=== PATIENT | female | born 1995 | race Caucasian/White ===

== ENCOUNTER 2018-11-21 16:36 | Emergency (ER) | payer OTHER ==
[2018-11-21] MEDS ORDERED: NS 1,000 ML IV ONE ×2 (16:54→17:13)
[2018-11-21] MEDS ORDERED: ONDANSETRON 4 MG/2 ML VIAL IVP ONE (17:13)
[2018-11-21] MEDS ORDERED: KETOROLAC 30 MG/1 ML SDV IVP ONE (17:13)
--- NOTE | 2018-11-21 17:20 | EDPHY ---
H & P Stated Complaint: abdominal pain Time Seen by Provider: 11/21/18 17:06 - Personal History LMP (Females 10-55): IUD In Place - Medical/Surgical History Hx Asthma: No Hx Chronic Respiratory Disease: No Hx Diabetes: No Hx Cardiac Disease: No Hx Renal Disease: No Hx Cirrhosis: No Hx Alcoholism: No Hx HIV/AIDS: No Hx Splenectomy or Spleen Trauma: No Other PMH: none reported - Social History Smoking Status: Never smoked Constitutional: Initial Vital Signs Temperature (C) 37.2 C 11/21/18 16:38 Heart Rate 61 11/21/18 16:38 Respiratory Rate 18 11/21/18 16:38 Blood Pressure 105/68 11/21/18 16:38 O2 Sat (%) 96 11/21/18 16:38 O2 Delivery Mode Room Air Allergies/Adverse Reactions: No Known Allergies Allergy (Unverified 11/21/18 16:38) Home Medications: Medication Instructions Recorded Ibuprofen [Motrin] 800 mg PO Q8 #20 tab 11/21/18 Ondansetron Odt [Zofran Odt 4 mg 4 mg PO Q4 PRN #10 tab 11/21/18 (RX)] Medical Decision Making - Diagnostics Imaging Results: Imaging Impressions Abdomen Ultrasound 11/21/18 17:13 Impression: Nonvisualization of the appendix with no secondary evidence of appendicitis. Findings discussed with Bonifacio Johnson MD 11/21/2018 at 18:24. Pelvic/Renal Ultrasound 11/21/18 17:13 Impression: Top of the IUD 7 mm from the superior margin of the uterine cavity, which can be associated with pain and bleeding, as well as a higher risk of expulsion or displacement. Findings discussed with Bonifacio Johnson MD 11/21/2018 at 18:24. Abdomen CT 11/21/18 18:25 Impression: 1. No CT findings for appendicitis. Moderate constipation. 2. Probable mild mesenteric adenitis. 3. Questionable mild diverticulitis mid descending colon. Results called and discussed with the syrup mixer assistant for Bonifacio Johnson MD, on 2018, 19:26. Imaging: Discussed imaging studies w/ call center professional Radiologist, I viewed and interpreted images myself ED Course/Re-evaluation: CHIEF COMPLAINT: Right lower quadrant abdominal pain HISTORY OF PRESENT ILLNESS: 23-year-old healthy female who 2 days ago developed abdominal pain. She said it was a bit better yesterday then got a lot worse today. She somewhat nauseated. She feels the pain some times on the left in by her umbilicus but most concentrated in the right lower quadrant. She was over at the [facility] and they sent her here for further evaluation. She denies any prior abdominal surgeries. She denies any fevers or chills. She is somewhat anorexic. REVIEW OF SYSTEMS: A comprehensive 10 system review of systems is otherwise negative aside from elements mentioned in the history of present illness and medical decision making. PHYSICAL EXAM: HR, BP, O2 Sat, RR. Temp noted General Appearance: Alert, well hydrated, appropriate, and non-toxic appearing. Head: Atraumatic without scalp tenderness or obvious injury Eyes: Pupils equal, round, reactive to light and accommodation, EOMI, no trauma , no injection. Ears: Clear bilaterally, no perforation, normal landmarks Nose: Atraumatic, no rhinorrhea, clear. Throat: There is no erythema or exudates, no lesions, normal tonsils, mucus membranes moist. Neck: Supple, 2+ carotid upstroke, nontender, no lymphadenopathy. Respiratory: No retractions, no distress, no wheezes, and no accessory muscle use. Lungs are clear to auscultation bilaterally. Cardiovascular: Regular rate and rhythm, no murmurs, rubs, or gallops. Bilateral carotid, radial, dorsalis pedis, and posterior tibial pulses intact. Good capillary refill all extremities. Gastrointestinal: Abdomen is soft but tender in the right lower quadrant, non- distended, no masses, no rebound, no guarding, no peritoneal signs. Musculoskeletal: Normal active ROM of all extremities, atraumatic. Neurological: Alert, appropriate, and interactive. The patient has normal DTRs and non-focal cranial nerves, motor, sensory, and cerebellar exam. Skin: No rashes, good turgor, no nodules on palpation. Past medical history: Denies Past surgical history: Denies Family history: Denies Social history: Single, employed, does not abuse tobacco drugs or alcohol DIAGNOSTICS/PROCEDURES/CRITICAL CARE TIME: Abdominal and pelvic US: Appendix not visualized. Low IUD. Abdominopelvic CT: 1. No CT findings for appendicitis. Moderate constipation. 2. Probable mild mesenteric adenitis. 3. Questionable mild diverticulitis mid descending colon. DIFFERENTIAL DIAGNOSIS: The differential diagnosis for the patient's abdominal pain included but was not limited to gastroenteritis, ovarian cyst, pelvic inflammatory disease, ovarian torsion, urinary tract infection, ectopic , cholecystitis, and appendicitis. MEDICAL DECISION MAKING: This patient is in no distress. I gave her some ketorolac and Zofran but she is not having much pain at this time. Pain is localized in the right lower quadrant on my examination but she does not have peritoneal signs. Laboratory studies and ultrasound are pending. I did tell her if we can't elucidate the problem with ultrasound we may consider CT scan. She has an IUD. 1827: I spoke with Dr. Segura, radiologist who reports that the US reveals a low IUD. The appendix is not visualized. Abdominopelvic CT ordered. 1925: I spoke with the radiologist who reports that the patient has mesenteric adenitis and gastroenteritis. 1939: Reassessed patient and discussed laboratory and imaging findings. I have advised her to follow up with a bowling alley refinisher. I have prescribed her Zofran and Motrin for her symptoms. Return precautions provided; patient is comfortable with this plan. - Data Points Laboratory Results: Laboratory Results 11/21/18 17:08 11/21/18 17:08 11/21/18 11/21/18 11/21/18 17:08 17:08 17:08 WBC 9.05 10^3/uL 10^3/uL (3.80-9.50) RBC 4.61 10^6/uL 10^6/uL (4.18-5.33) Hgb 14.2 g/dL g/dL (12.6-16.3) Hct 41.6 % % (38.0-47.0) MCV 90.2 fL fL (81.5-99.8) MCH 30.8 pg pg (27.9-34.1) MCHC 34.1 g/dL g/dL (32.4-36.7) RDW 11.9 % % (11.5-15.2) Plt Count 234 10^3/uL 10^3/uL (150-400) MPV 9.8 fL fL (8.7-11.7) Neut % (Auto) 63.0 % % (39.3-74.2) Lymph % (Auto) 26.4 % % (15.0-45.0) Mcdonald % (Auto) 8.5 % % (4.5-13.0) Eos % (Auto) 1.2 % % (0.6-7.6) Baso % (Auto) 0.6 % % (0.3-1.7) Nucleat RBC Rel Count 0.0 % % (0.0-0.2) Absolute Neuts (auto) 5.70 10^3/uL 10^3/uL (1.70-6.50) Absolute Lymphs (auto) 2.39 10^3/uL 10^3/uL (1.00-3.00) Absolute Monos (auto) 0.77 10^3/uL 10^3/uL (0.30-0.80) Absolute Eos (auto) 0.11 10^3/uL 10^3/uL (0.03-0.40) Absolute Basos (auto) 0.05 10^3/uL 10^3/uL (0.02-0.10) Absolute Nucleated RBC 0.00 10^3/uL 10^3/uL (0-0.01) Immature Gran % 0.3 % % (0.0-1.1) Immature Gran # 0.03 10^3/uL 10^3/uL (0.00-0.10) Sodium 138 mEq/L mEq/L (135-145) Potassium 3.8 mEq/L mEq/L (3.5-5.2) Chloride 103 mEq/L mEq/L (97-110) Carbon Dioxide 22 mEq/l mEq/l (22-31) Anion Gap 13 mEq/L mEq/L (6-14) BUN 14 mg/dL mg/dL (7-23) Creatinine 0.7 mg/dL mg/dL (0.6-1.0) Estimated GFR > 60 Glucose 73 mg/dL mg/dL (70-100) Calcium 9.6 mg/dL mg/dL (8.5-10.4) Total Bilirubin 0.9 mg/dL mg/dL (0.1-1.4) Conjugated Bilirubin 0.3 mg/dL mg/dL (0.0-0.5) Unconjugated Bilirubin 0.6 mg/dL mg/dL (0.0-1.1) AST 23 IU/L IU/L (14-46) ALT 33 IU/L IU/L (9-52) Alkaline Phosphatase 63 IU/L IU/L (38-126) Total Protein 8.3 g/dL H g/dL (6.3-8.2) Albumin 5.0 g/dL g/dL (3.5-5.0) Lipase 97 IU/L IU/L (23-300) Beta HCG, Qual NEGATIVE Medications Given: Discontinued Medications Sodium Chloride (Ns) 1,000 mls @ 0 mls/hr IV ONCE ONE; Wide Open PRN Reason: Protocol Stop: 11/21/18 16:55 Last Admin: 11/21/18 17:14 Dose: 1,000 mls Sodium Chloride (Ns) 1,000 mls @ 0 mls/hr IV EDNOW ONE; Wide Open PRN Reason: Protocol Stop: 11/21/18 17:14 Last Admin: 11/21/18 17:23 Dose: 1,000 mls Ketorolac Tromethamine (Toradol) 30 mg IVP EDNOW ONE Stop: 11/21/18 17:14 Last Admin: 11/21/18 17:29 Dose: 30 mg Ondansetron HCl (Zofran) 4 mg IVP EDNOW ONE Stop: 11/21/18 17:14 Last Admin: 11/21/18 17:29 Dose: 4 mg Departure - Departure Disposition: Home, Routine, Self-Care Clinical Impression: Mesenteric adenitis, Gastroenteritis Condition: Good Instructions: Gastroenteritis (ED), Mesenteric Adenitis (ED) Additional Instructions: 1. Follow-up with your primary doctor within 72 hours. 2. Return to the Emergency Department for fever, chest pain, shortness of breath , increasing pain or other worsening of condition. 3. Take Zofran and Motrin as prescribed. Referrals: [facility],. [Clinic] - As per Instructions Wai Saucedo MD [Medical Doctor] - As per Instructions Prescriptions: Ibuprofen [Motrin] 800 mg PO Q8 #20 tab Ondansetron Odt [Zofran Odt 4 mg (RX)] 4 mg PO Q4 PRN #10 tab PRN Reason: Nausea/Vomiting, Use 1st
[2018-11-21 17:32] LABS: PLATELET COUNT 234 10^3/uL (150-400)
[2018-11-21] MEDS ORDERED: IOPAMIDOL (ISOVUE-300) 100 ML BTL ONE (18:31)
[2018-11-21 19:56] VITALS: BP 110/69
== END 2018-11-21 20:00 | disposition home or self-care (01) ==
DX: I88.0 Nonspecific mesenteric lymphadenitis (principal); K52.9 Noninfective gastroenteritis and colitis, unspecified; E86.9 Volume depletion, unspecified
CPT/HCPCS: 96374; J1885; J2405; Q9967